=== PATIENT | female | born 1950 | race Caucasian/White ===

== ENCOUNTER 2018-07-08 17:40 | Inpatient (IN) ==
[2018-07-08 18:19] LABS: URINE SOURCE CLEAN CATCH
[2018-07-08 18:23] LABS: BILIRUBIN URINE NEGATIVE (NEGATIVE); BLOOD URINE NEGATIVE (NEGATIVE); COLOR YELLOW; GLUCOSE URINE NEGATIVE (NEGATIVE); KETONE URINE NEGATIVE (NEGATIVE); LEUKOCYTES URINE LARGE (NEGATIVE); NITRITE URINE NEGATIVE (NEGATIVE); PH URINE 5.5; PROTEIN URINE NEGATIVE (NEGATIVE); TURBIDITY URINE HAZY (CLEAR); UROBILINOGEN URINE NORMAL (NORMAL)
[2018-07-08 18:24] LABS: UR EPITHELIAL CELLS <10 /HPF (<10); URINE BACTERIA NEGATIVE /HPF; URINE RBC <10 /HPF (<10); URINE WBC TNTC /HPF (<10)
[2018-07-08] MEDS ORDERED: NS 1,000 ML IV ONE ×2 (18:25)
[2018-07-08] MEDS ORDERED: MORPHINE IV ONE (18:25)
[2018-07-08] MEDS ORDERED: ZOFRAN IM ONE (18:25)
--- NOTE | 2018-07-08 18:25 | Diag Imaging Result Doc PS360 ---
CHEST-1 VIEW - 07/08/2018 INDICATION: POSSIBLE SEPSIS COMPARISON: None FINDINGS: The lungs are normally expanded and clear. Heart size and mediastinal contours are normal. No pneumothorax or pleural effusion. IMPRESSION: Negative exam. Electronically signed by Vinny Garcia 07/08/2018 6:23 PM
[2018-07-08] MEDS ORDERED: ROCEPHIN 2 GM in NS 50 ML IV ONE (18:28)
[2018-07-08] MEDS ORDERED: ZOFRAN IV ONE (18:49)
[2018-07-08 18:56] LABS: BASO# 0.01 X1000 (0.0-0.2); BASO% 0.1 % (0.0-0.8); EOS# 0.11 X1000 (0.0-0.7); EOS% 0.6 % (0.0-10.0); HEMATOCRIT 39.1 % (37.0-47.0); HEMOGLOBIN 12.7 g/dL (12.0-16.0); IMM GRAN# 0.05 X1000 (0.0-0.04); IMM GRAN% 0.3 % (0.0-0.5); LYMPH% 3.8 % (20.5-51.1); MCH 30.4 PG (27-31); MCHC 32.5 g/dL (33-37); MCV 93.5 FL (81-99); MONO# 1.17 X1000 (0.11-0.59); MONO% 6.3 % (1.7-9.3); MPV 9.5 FL (7.4-10.4); NEUT# 16.53 X1000 (1.4-6.5); NEUT% 88.9 % (42.2-75.2); PLT 227 X1000 (130-400); RBC 4.18 XMIL (4.2-5.4); RDW 13.1 % (11.5-14.5); WBC 18.57 X1000 (4.8-10.8)
[2018-07-08 18:59] LABS: INR 0.82
[2018-07-08 19:00] LABS: PTT 26.6 Seconds (22.3-41.8)
[2018-07-08 19:12] LABS: ALB/GLOB RATIO 1.9; ALBUMIN 4.2 g/dL (3.5-5.0); CALCIUM 8.9 mg/dL (8.8-10.2); POTASSIUM 3.7 mmol/L (3.5-5.1); TOTAL BILIRUBIN 0.23 mg/dL (0.20-1.00); TOTAL PROTEIN 6.4 g/dL (6.3-8.3)
[2018-07-08] MEDS ORDERED: TYLENOL PO ONE (19:14)
--- NOTE | 2018-07-08 20:36 | Diag Imaging Result Doc PS360 ---
CT ABD/PELVIS W/IV CONT ONLY - 07/08/2018 INDICATION: MID ABDOMEN TENDERNSS PAIN + FEVER + VOMITING COMPARISON: 05/07/2016 FINDINGS: The lung bases are clear and the heart size is normal. There are cholecystectomy clips. No biliary dilation. All abdominal organs are normal. There is severe focal inflammation at the distal sigmoid colon in the region of a diverticulum. There is probably a small adjacent gas and fluid collection deep within the pelvic soft tissues. This measures about 3.5 x 3.2 cm. Urinary bladder is normal. Bones are intact. IMPRESSION: Acute sigmoid colon diverticulitis. There is a small adjacent abscess in the deep pelvic soft tissues between the urinary bladder and the rectum. This exam was performed using automated exposure control, adjustment of mA or kV according to patient size, and/or use of iterative reconstruction technique Electronically signed by Vinny Garcia 07/08/2018 8:34 PM
[2018-07-08] MEDS ORDERED: FLAGYL 500 MG/NS 500 MG/100 ML IVPB IV ONE (20:54)
--- NOTE | 2018-07-08 21:07 | PROVIDER DOCUMENTATION ---
This chart was entered by Shahana Galindo Scribe, acting as scribe for Hermes Quintana MD. HPI-Abdominal Pain/GI Problem - General Chief Complaint: Abdominal Pain Stated Complaint: ABD PAIN,FEVER,VOMITING,CHILLS Time Seen by Provider: 07/08/18 17:59 Source: patient Allergies/Adverse Reactions: Patient Allergies Allergy/AdvReac Type Severity Reaction Status Date / Time NSAIDS (Non-Steroidal Allergy Unknown Verified 07/08/18 18:18 Anti-Inflamma Sulfa (Sulfonamide Allergy Unknown Verified 07/08/18 18:18 Antibiotics) - History of Present Illness-ABD Nature of Presenting Problems: 67 yof c/o fever of 102.9, headache, lower abd pain and nausea and vomiting starting this afternoon. pt went to emergency clinic wednesday for sinus infection and finished taking azythromycin 250mg today. pt had food poisoning 4 weeks ago. pt has hx of thyroid disorder and arthritis. pt denies dysuria, retention, and urgency. Abdominal Pain Onset Location: reports: suprapubic Pain Radiation: reports: no radiation Quality of Pain: reports: sharp Severity in ED: reports: mild Onset/Duration: reports: this afternoon Timing: reports: still present Activities at Onset: reports: none Review of Systems - Adult - REVIEW OF SYSTEMS - ADULT Constitutional: reports: no symptoms reported, fever (102.9 at 1753) Eyes: reports: no symptoms reported Ears, Nose, Mouth & Throat: reports: no symptoms reported Cardiovascular: reports: no symptoms reported. denies: chest pain Respiratory: reports: no symptoms reported. denies: shortness of breath Gastrointestinal: reports: see HPI, abdominal pain (suprapubic), nausea, vo miting. denies: hematemesis, constipation, diarrhea Genitourinary: reports: no symptoms reported Musculoskeletal: reports: no symptoms reported Integumentary: reports: no symptoms reported Neurological: reports: no symptoms reported Psychiatric: reports: no symptoms reported Endocrine: reports: no symptoms reported Hematologic/Lymphatic: reports: no symptoms reported Allergic/Immunologic: reports: no symptoms reported All Other Systems: Reviewed and Negative Past History - Adult - PAST MEDICAL HISTORY-ADULT Review of Records: reports: Old Records Reviewed, Nursing Assessment Review, Medications Reviewed, Social history reviewed & non-contributory. Major Childhood Illnesses: reports: denies history Cardiovascular: reports: denies history Respiratory: reports: denies history Gastrointestinal: reports: denies history Obstetrical/Gynecological: reports: denies history Genitourinary: reports: denies history Musculoskeletal: reports: arthritis Neurological: reports: denies history Endocrine/Immune: reports: thyroid disorder Other Conditions: reports: denies history - PRIOR SURGERIES/PROCEDURES Surgical/Procedure History: reports: cholecystectomy, hysterectomy - IMMUNIZATION STATUS Childhood Immunizations: See Nurse Assessment Flu Vaccine: See Nurse Assessment - FAMILY HISTORY Family History: reviewed, not pertinent - SOCIAL HISTORY Smoking: non-smoker Substance Use: none/never Physical Exam-General - PHYSICAL EXAM-ADULT Initial Vital Signs Reviewed: Yes - CONSTITUTIONAL General Appearance: alert, mild distress. negative: slow to respond, obtunded, combative - EYES Eyes: PERRL/EOMI - HEAD, EARS, NOSE, MOUTH & THROAT HENMT: normocephalic/atraumatic, moist mucous membranes, normal ENT inspection - NECK Neck: non-tender, full range of motion, supple, normal inspection - RESPIRATORY Respiratory: chest non-tender, lungs clear, normal breath sounds - CARDIOVASCULAR Cardiovascular: normal peripheral pulses, tachycardia. negative: regular rate, rhythm, JVD, bradycardia - GASTROINTESTINAL (ABDOMEN) Abdominal Exam: normal bowel sounds, soft, tenderness (suprapubic). negative: non tender, guarding, rigid - LYMPHATIC Lymphatic: no adenopathy - MUSCULOSKELETAL Back Exam: normal inspection, no CVA tenderness, no vertebral tenderness Extremity: normal range of motion, non-tender, normal inspection, pedal edema (rt +2, lt +1). negative: no pedal edema Peripheral Pulses: radial (R): 2+, radial (L): 2+ - SKIN Integumentary: normal color, normal turgor, warm/dry - NEUROLOGIC Neurologic: director of maternity services II-XII nml as tested, grossly normal, no motor/sensory deficits - PSYCHIATRIC Psych/Mental Status: normal mood/affect, normal thought content, normal thought process, oriented x 3 Progress - PLAN OF CARE/RESULTS Progress/Plan/Lab Results: Vital Signs - 8 hr 07/08/18 17:53 Temperature 102.9 F H Pulse Rate 114 H Respiratory Rate 20 Blood Pressure 141/72 O2 Sat by Pulse Oximetry 95 Orders Category Date Time Status Cardiac Monitoring DIRECTED Care 07/08/18 17:56 Active IV Insertion ORDERED Care 07/08/18 17:56 Active Notify MD of + Sepsis Screen NOW Care 07/08/18 17:56 Active Notify Physician As Ordered Care 07/08/18 17:56 Active CHEST-1 VIEW [RAD] Stat Exams 07/08/18 17:56 Ordered BLOOD CULTURE [BLDCUL] Stat Lab 07/08/18 17:56 Uncollected CBC WITH DIFF [HEME] Stat Lab 07/08/18 17:56 Uncollected CK PROFILE [SP CHEM] Stat Lab 07/08/18 17:56 Uncollected COMPREHENSIVE METABOLIC PANEL [CHEM] Stat Lab 07/08/18 17:56 Uncollected LACTATE, PLASMA [CHEM] Q3H Lab 07/08/18 18:00 Uncollected LACTATE, PLASMA [CHEM] Q3H Lab 07/08/18 21:00 Uncollected LACTATE, PLASMA [CHEM] Q3H Lab 07/09/18 00:00 Uncollected PROTIME WITH INR [COAG] Stat Lab 07/08/18 17:56 Uncollected PTT [COAG] Stat Lab 07/08/18 17:56 Uncollected TROPONIN T Stat Lab 07/08/18 17:56 Uncollected URINALYSIS W/POSS RFLX CULT [URINALYSIS] Stat Lab 07/08/18 17:56 Uncollected Oxygen Device Stat Oth 07/08/18 17:56 Active Result Diagrams: 07/08/18 18:24 07/08/18 18:24 - REASSESSMENT Reassessment #1 Time Reassessed: 21:05 Status: other (67 YEAR OLD CAME IN WITH SEVERE SUPRAPUBIC/RECTUM AREA PAIN FOUND TO HAVE NEUTROPHILIC LEUKOCTYOSIS AND UTI WITH IMAGE REVEALING ACUTE SIGMOID C OLON DIVERTICULITIS AN SAMLL ADJACENT ABSCESS IN THE DEEP PELVIC SOFT TISSUE BETWEEN THE URINARY BLADDER AND THE RECTUM. SPOKE TO HOSPITALIST; APPRECIATE THEIR ASSISTANCE.) - EKG 1 Time of EKG reading by physician:: 18:55 EKG Read and Signed by:: Alma Morse EKG Interpretation (*Must complete 3 of following elements*): Abnormal Rate: 114 Rhythm: ST AR Interval: normal ST Wave: non-specific ST changes (nonspecific st abnormality) - XRAY 1 XRAY: Bilateral XRAY Study: Chest (CHEST-1 VIEW - 07/08/2018 INDICATION: POSSIBLE SEPSIS COMPARISON: None FINDINGS: The lungs are normally expanded and clear. Heart size and mediastinal contours are normal. No pneumothorax or pleural effusion. IMPRESSION: Negative exam. Electronically signed by Vinyn Garcia 07/08/2018 6:23 PM) Impression: Normal Comparison with other Films: no prior study - CT/MRI 1 CT Study: Abdomen (CT ABD/PELVIS W/IV CONT ONLY - 07/08/2018 INDICATION: MID ABDOMEN TENDERNSS PAIN + FEVER + VOMITING COMPARISON: 05/07/2016 FINDINGS: The lung bases are clear and the heart size is normal. There are cholecystectomy clips. No biliary dilation. All abdominal organs are normal. There is severe focal inflammation at the distal sigmoid colon in the region of a diverticulum. There is probably a small adjacent gas and fluid collection deep within the pelvic soft tissues. This measures about 3.5 x 3.2 cm. Urinary bladder is normal . Bones are intact. IMPRESSION: Acute sigmoid colon diverticulitis. There is a small adjacent abscess in the deep pelvic soft tissues between the urinary bladder and the rectum. This exam was performed using automated exposure control, adjustment of mA or kV according to patient size, and/or use of iterative reconstruction technique Electronically signed by Vinny Garcia 07/08/2018 8:34 PM), Pelvis Impression: Abnormal Comparison with other Films: changes noted Departure - Departure Date of Disposition Decision: 07/08/18 Time of Disposition Decision: 21:06 DIAGNOSIS: Diverticulitis, UTI (urinary tract infection), Neutrophilic leukocytosis, Fever, Sinus tachycardia Disposition: ADMITTED INPATIENT 09 Certified Medical Emergency: Emergent Condition: Fair Referrals and Follow-Ups: Luisa Morton MD [Primary Care Provider] - - Critical Care Note This patient required my direct & personal management of CC.: No Attestation - Physician/ PRATEEK Attestation Patient care was provided by Advanced Practice Provider:: No The physician spent face to face time with patient:: Yes Advanced Practice Provider documentation review:: Supervising physician onsite and consulted in the evaluation and care of this patient. The physician did have a face to face encounter with the patient. This chart was documented by the indicated scribe, (Shahana Galindo Scribe) and accurately reflects the services I performed and decisions made by me, Lucrecia Quintana MD, as attested by the provider's signature.
[2018-07-08] MEDS ORDERED: OXY IR PO PRN (22:09)
[2018-07-08] MEDS: MORPHINE IV PRN (23:42)
[2018-07-08] MEDS: ZOFRAN IV PRN (23:42)
[2018-07-08] MEDS: FLAGYL 500 MG/NS 500 MG/100 ML IVPB IV SCH (23:43)
[2018-07-09] MEDS: FLAGYL 500 MG/NS 500 MG/100 ML IVPB IV SCH ×5 (04:08→22:19)
[2018-07-09] MEDS: MORPHINE IV PRN ×2 (04:31→09:13)
[2018-07-09] MEDS: ZOFRAN IV PRN ×3 (04:38→15:59)
[2018-07-09 06:39] LABS: BASO# 0.01 X1000 (0.0-0.2); BASO% 0.1 % (0.0-0.8); EOS# 0.14 X1000 (0.0-0.7); EOS% 0.9 % (0.0-10.0); HEMATOCRIT 33.1 % (37.0-47.0); HEMOGLOBIN 10.6 g/dL (12.0-16.0); IMM GRAN# 0.05 X1000 (0.0-0.04); IMM GRAN% 0.3 % (0.0-0.5); LYMPH# 1.52 X1000 (1.2-3.4); LYMPH% 9.4 % (20.5-51.1); MCH 30.3 PG (27-31); MCV 94.6 FL (81-99); MONO# 1.56 X1000 (0.11-0.59); MONO% 9.7 % (1.7-9.3); MPV 9.6 FL (7.4-10.4); NEUT# 12.82 X1000 (1.4-6.5); NEUT% 79.6 % (42.2-75.2); PLT 193 X1000 (130-400); RDW 13.4 % (11.5-14.5)
[2018-07-09 06:49] LABS: AGAP 9; BUN 9 mg/dL (8-22); CALCIUM 7.7 mg/dL (8.8-10.2); CHLORIDE 107 mmol/L (98-107); COSMO 276; CREATININE 0.8 mg/dL (0.5-0.9); ESTIMATED GFR > 60; GLUCOSE 97 mg/dL (70-104); POTASSIUM 3.5 mmol/L (3.5-5.1); SODIUM 139 mmol/L (136-145); TCO2 23 mmol/L (25-35)
--- NOTE | 2018-07-09 08:13 | HISTORY AND PHYSICAL ---
PRIMARY CARE PHYSICIAN: Dr. Luisa Morton. REASON FOR ADMISSION: One day of sudden acute on chronic abdominal pain. HISTORY OF PRESENT ILLNESS: Ms. Darlin Pelayo is a 67-year-old woman with no significant past medical history who reports that 4 weeks ago she had what she describes as some gastroenteritis, presumably food poisoning, and states that she has not gotten over this. She says that she has been having intermittent lower abdominal pain with no specific aggravating or relieving factors. She says that she has not had any additional symptoms other than the aforementioned transient lower abdominal pain. She states that at about 3:00 p.m. earlier today she developed sudden intense suprapubic pain which was sharp in nature, not radiating, to the point that it is has pretty much crippled her and made her cry. She states that she an hour later developed fever and chills and has vomited twice since the onset of this pain. It has been constant with no relief. It is worse when she tries to move and it eases when she keeps still. She admits to having some mild dysuria today but no frequency or urgency and no hematuria or bleeding from any orifice. She denies any cardiorespiratory symptoms. No arthralgia or rash. Denies any polyuria or polydipsia. No focal neurological complaints. REVIEW OF SYSTEMS: No contact with anybody with GI symptoms. Otherwise, a 12- system review was done with positive findings in HPI. The patient complains of increasing thirst. ALLERGIES: NSAIDs, sulfa, and penicillin. She has taken Keflex without any problems in the past. SURGICAL HISTORY: She has had a cholecystomy, hysterectomy, rotator cuff surgery, bilateral carpal tunnel surgery, right knee surgery, right elbow surgery, and ACDF. SOCIAL HISTORY: She does not smoke, drink, or use illicit drugs. She lives with her and is the primary caregiver for him since he has progressive dementia. FAMILY HISTORY: Significant for heart disease, stroke, and breast cancer. No type 2 diabetes in first degree relatives. LAB WORK: White count is 18,000, hemoglobin and hematocrit 12 and 39, platelets 227, and 89% neutrophils. BUN is 14 and creatinine 1. Troponin is negative. Lactate is normal. PT is normal. Urinalysis: Large leukocytes with lots of WBCs, no bacteria. Blood culture is pending. Chest film is normal. CT abdomen and pelvis shows sigmoidal diverticulitis with small adjacent abscess in the deep pelvic soft tissue between the urinary bladder and rectum measuring about 3 x 3 cm. PHYSICAL EXAMINATION: VITAL SIGNS: Blood pressure is 139/89, heart rate 119, respirations 19, temperature 103, and oxygen saturation 97% on room air. GENERAL: Middle-aged patient who is not acutely toxic. She is alert and oriented to person, place, and time. Normal mood and affect. HEAD: Normocephalic, atraumatic. EYES: PERRLA. EOMI. Anicteric. Not pale. ENT: Grossly normal. NECK: Supple. No JVD, carotid bruit, or thyromegaly. CHEST: Clear when auscultated. Good air entry in both lung harvey. CARDIOVASCULAR: First and second heart sounds heard. No gallops. She has a 3/6 pansystolic murmur radiating into the neck. Rhythm is regular. ABDOMEN: Full and soft with tenderness confined to the suprapubic area with no rebound or guarding. Bowel sounds are slightly hyperactive. RECTAL: Exam deferred at this time. EXTREMITIES: The patient has good distal pulses and pulse volumes in all extremities. Rhythm is regular and symmetrical. NEUROLOGICAL: No tremors. No focal deficits. SKIN: Intact with no breakdown, lesions, or erythema. There is mildly decreased skin turgor. MUSCULOSKELETAL: Grossly normal. ASSESSMENT AT THIS TIME: 1. Acute sigmoidal diverticulitis. 2. Pelvic abscess secondary to #1. 3. Pyuria. 4. Dehydration. PLAN: The patient will be started on broad-spectrum antibiotics with particular coverage for gram- negative rods and anaerobes. The patient's abscess formation is about 3 cm in diameter. We will defer to the radiologist to see if a percutaneous drain can be placed or if the patient will initially be treated [address] a repeat [address] scan done to make a final decision about drain placement. We will consult General Surgery as backup in case surgical intervention is needed although this is unlikely in this patient. Treat the patient symptomatically for vomiting, pain, and dehydration. Follow daily labs and modify treatment accordingly. Independent exam done by me and it showed + rebound tenderness without any guarding in the LLQ and suprapubic areas. Pyuria was likely as a result of nearby reaction to pelvic abscess. Answered all family and patient's questions regarding plan. The above plan was also relayed to FURNITURE [employer]DER. cc: MD Luisa Amaya MD MTDD
--- NOTE | 2018-07-09 10:26 | CONSULTATION ---
DATE OF CONSULTATION: 07/09/2018 REASON FOR CONSULTATION: Diverticular abscess. HISTORY OF PRESENT ILLNESS: This is a 67-year-old female who reports lower abdominal pain with nausea and intermittent vomiting over the last several weeks that she has attributed to food poisoning or gastroenteritis. However, yesterday she had acute worsening in the suprapubic area that was very sharp with associated fever over 101 degrees and chills, and she had 2 more episodes of vomiting in the last 24 hours. It hurts worse to move. It is lessened with lying still and drawing her knees and legs upwards. PAST MEDICAL HISTORY: Unremarkable. PAST SURGICAL HISTORY: Laparoscopic cholecystectomy, hysterectomy. HOME MEDICATIONS: None. SOCIAL HISTORY: Negative for tobacco, alcohol or illicit drug use. FAMILY HISTORY: Reviewed and noncontributory. REVIEW OF SYSTEMS: Ten systems reviewed and negative except as noted above. Last colonoscopy was 4 to 5 years ago and showed some small polyps. ALLERGIES: NSAIDs and sulfa. PHYSICAL EXAMINATION: Vital Signs: Temperature 98.9 degrees, pulse 79, respirations 18, blood pressure 114/57, O2 saturation 97%. General: She is awake, alert, oriented x4. No acute distress. HEENT: Normocephalic, atraumatic. Extraocular muscles intact. Pupils equal, round, reactive to light. Sclerae anicteric. Moist mucous membranes. Neck: Supple. No thyromegaly. Cardiovascular: Regular rate and rhythm. Respiratory: Bilateral equal breath sounds. No work of breathing. Gastrointestinal: Soft, nondistended. Hypoactive bowel sounds. She is quite tender in the suprapubic area and lower quadrants. Her upper abdomen is relatively nontender. No rebound or guarding. Extremities: No clubbing, cyanosis, or edema. Skin: Warm and dry. No rash. Musculoskeletal: Moves all extremities equally and well. LABORATORY DATA: White blood cell count 16,000, hemoglobin 10.6, hematocrit 33.1, platelet count 193,000. Electrolytes reviewed and unremarkable. IMAGING: Abdominal and pelvis CT scan was reviewed by me as well as official report, and does show an inflamed distal sigmoid colon with a pericolonic abscess that is small, less than 5 cm. ASSESSMENT AND PLAN: A 67-year-old female with complicated diverticulitis with abscess. She does not require an operation at this time or drainage. This will likely resolve with antibiotics alone. I would keep her on ice chips and sips of clear liquids for now and maintain her on broad- spectrum antibiotics as you are doing with Rocephin and Flagyl. We will continue to monitor her progress over the next few days. cc: Nahun Nunez MD
[2018-07-09] MEDS: TYLENOL LIQUID PO SCH ×4 (15:00→22:19)
[2018-07-09] MEDS: PERICOLACE PO SCH ×2 (15:01→20:53)
[2018-07-09] MEDS: CULTURELLE PO SCH ×2 (15:01→20:53)
[2018-07-09] MEDS: NS 1,000 ML IV SCH ×3 (15:01→20:54)
[2018-07-09] MEDS: CIPRO 400 MG/D5W 400 MG/200 ML IVPB IV SCH (15:59)
--- NOTE | 2018-07-09 17:53 | PROGRESS NOTE ---
DATE: 07/08/2018 SUBJECTIVE: The patient is still in a lot of pain. She is having emesis even with sips of clears. OBJECTIVE: Vital Signs: Blood pressure is 132/63, heart rate 66, respiratory rate 18, temperature 98.7, 96% on room air. Cardiovascular: Regular rate and rhythm. Pulmonary: Bilateral breath sounds. Clear to auscultation. GI: Soft. Pain diffusely with guarding in her lower quadrants. LABORATORY DATA: White count is 16, down from 18, hemoglobin and hematocrit 10 and 33, platelets 193. Basic was normal. PROBLEM LIST: Diverticulitis with abscess. We will continue antibiotics. I have switched her to Cipro and Flagyl. She had been on Rocephin and Flagyl, I guess out of preference. Rocephin is probably just as effective. I standardly use fluoroquinolones, and we may even need to consider carbapenem in this setting, but we will continue antibiotics and follow. Her pain is not completely under control. None of her medications have been updated. She wanted her medications restarted, but they have not been updated. We will work on that. She is requesting something for sleep, so we will put in for some Ativan. Surgery has been consulted, so at this point, we are just doing conservative measures, and we will follow. cc: Ashish Asher MD
[2018-07-09] MEDS ORDERED: ROCEPHIN 2 GM in NS 50 ML IV SCH (19:00)
[2018-07-09] MEDS: ATIVAN IV SCH (20:54)
[2018-07-10] MEDS: CIPRO 400 MG/D5W 400 MG/200 ML IVPB IV SCH ×2 (01:00→13:28)
[2018-07-10] MEDS: FLAGYL 500 MG/NS 500 MG/100 ML IVPB IV SCH ×4 (04:11→23:34)
[2018-07-10 06:52] LABS: EOS# 0.11 X1000 (0.0-0.7); EOS% 1.4 % (0.0-10.0); HEMATOCRIT 33.2 % (37.0-47.0); HEMOGLOBIN 10.4 g/dL (12.0-16.0); IMM GRAN# 0.02 X1000 (0.0-0.04); IMM GRAN% 0.3 % (0.0-0.5); LYMPH# 0.99 X1000 (1.2-3.4); LYMPH% 12.7 % (20.5-51.1); MCH 29.8 PG (27-31); MCHC 31.3 g/dL (33-37); MCV 95.1 FL (81-99); MONO# 0.72 X1000 (0.11-0.59); MONO% 9.2 % (1.7-9.3); MPV 9.8 FL (7.4-10.4); NEUT# 5.96 X1000 (1.4-6.5); NEUT% 76.4 % (42.2-75.2); PLT 189 X1000 (130-400); RBC 3.49 XMIL (4.2-5.4); RDW 13.1 % (11.5-14.5)
[2018-07-10 07:13] LABS: AGAP 10; BUN 7 mg/dL (8-22); CALCIUM 8.2 mg/dL (8.8-10.2); CHLORIDE 110 mmol/L (98-107); COSMO 280; CREATININE 0.7 mg/dL (0.5-0.9); ESTIMATED GFR > 60; GLUCOSE 77 mg/dL (70-104); POTASSIUM 3.5 mmol/L (3.5-5.1); SODIUM 142 mmol/L (136-145); TCO2 22 mmol/L (25-35)
[2018-07-10] MEDS: TYLENOL LIQUID PO SCH ×3 (10:10→16:57)
[2018-07-10] MEDS: PERICOLACE PO SCH ×2 (10:11→21:29)
[2018-07-10] MEDS: CULTURELLE PO SCH ×2 (10:12→21:29)
[2018-07-10] MEDS: ZOFRAN IV PRN (14:30)
[2018-07-10] MEDS: D5 1/2 NS + KCL 20 MEQ 1,000 ML IV SCH (14:39)
[2018-07-10] MEDS ORDERED: PHENERGAN IV PRN (17:57)
[2018-07-10] MEDS ORDERED: SODIUM CHLORIDE 0.9% INJ PRN (17:57)
[2018-07-10] MEDS ORDERED: OFIRMEV 1000 MG/ISOTONIC SOLN 1,000 MG/100 ML BOTTLE IV PRN (18:56)
--- NOTE | 2018-07-10 19:19 | PROGRESS NOTE ---
DATE: 07/10/2018 SUBJECTIVE: She is still in a lot of pain. She has several episodes of throwing up because of she just cannot tolerate very much p.o. OBJECTIVE: Blood pressure is 127/58.Heart: Rate of regular rate and rhythm. Pulmonary: Bilateral breath sounds. GI: Soft, tender in her lower quadrants. LABORATORY DATA: White count is down to 7, hemoglobin and hematocrit 10 and 33, platelets 189,000. Basic was normal. PROBLEMS: Acute sigmoid diverticulitis with a 3 cm abscess. She is on Cipro and Flagyl and seems to be doing okay. We will continue IV fluids. She is still having some nausea. We have added Phenergan to her regimen, she is just very intolerant of medications. DISPOSITION: Anticipate will probably have to repeat her CT scan at the discretion of surgery in the next day or 2 just to make sure that things are improved. Her diet has been advanced. We will continue to monitor her electrolytes and she is not eating as well and I believe overall she is improved. Now urine culture shows strep agalactiae which is sensitive to Levaquin and she is on Cipro so we will continue to follow. At this point I am not clear this is bacteriuria but she is being covered with current antibiotics. cc: Ashish Asher MD
[2018-07-10] MEDS: ATIVAN IV SCH (21:30)
[2018-07-11] MEDS: CIPRO 400 MG/D5W 400 MG/200 ML IVPB IV SCH ×2 (01:01→14:06)
[2018-07-11] MEDS: SYNTHROID PO SCH (05:59)
[2018-07-11] MEDS: FLAGYL 500 MG/NS 500 MG/100 ML IVPB IV SCH ×4 (05:59→21:52)
[2018-07-11] MEDS: D5 1/2 NS + KCL 20 MEQ 1,000 ML IV SCH (05:59)
[2018-07-11 06:36] LABS: BASO# 0.01 X1000 (0.0-0.2); BASO% 0.2 % (0.0-0.8); EOS% 3.6 % (0.0-10.0); HEMATOCRIT 33.4 % (37.0-47.0); HEMOGLOBIN 10.6 g/dL (12.0-16.0); LYMPH# 1.09 X1000 (1.2-3.4); LYMPH% 19.6 % (20.5-51.1); MCH 29.8 PG (27-31); MCHC 31.7 g/dL (33-37); MCV 93.8 FL (81-99); MONO# 0.56 X1000 (0.11-0.59); MONO% 10.1 % (1.7-9.3); MPV 9.6 FL (7.4-10.4); NEUT# 3.69 X1000 (1.4-6.5); NEUT% 66.5 % (42.2-75.2); PLT 200 X1000 (130-400); RBC 3.56 XMIL (4.2-5.4); RDW 12.9 % (11.5-14.5); WBC 5.55 X1000 (4.8-10.8)
[2018-07-11 07:02] LABS: AGAP 10; BUN 4 mg/dL (8-22); CALCIUM 8.6 mg/dL (8.8-10.2); CHLORIDE 112 mmol/L (98-107); COSMO 291; CREATININE 0.8 mg/dL (0.5-0.9); ESTIMATED GFR > 60; GLUCOSE 94 mg/dL (70-104); POTASSIUM 3.3 mmol/L (3.5-5.1); SODIUM 148 mmol/L (136-145); TCO2 26 mmol/L (25-35)
--- NOTE | 2018-07-11 08:12 | EKG Report ---
Test Performed on : 07/08/2018 6:55:31 PM Test Reason : TACHYCARDIA Blood Pressure : / mmHG Vent. Rate : 114 BPM Atrial Rate : 114 BPM P-R Int : 168 ms QRS Dur : 084 ms QT Int : 316 ms P-R-T Axes : 027 019 010 degrees QTc Int : 435 ms Sinus tachycardia. Nonspecific ST abnormality Abnormal ECG No previous ECGs available Unconfirmed Result
[2018-07-11] MEDS: NEURONTIN PO SCH ×2 (08:13→14:05)
[2018-07-11] MEDS: CULTURELLE PO SCH ×2 (08:13→21:52)
[2018-07-11] MEDS: PERICOLACE PO SCH ×2 (08:14→21:53)
--- NOTE | 2018-07-11 13:37 | PROGRESS NOTE ---
DATE: 07/11/2018 SUBJECTIVE: The patient still having abdominal pain. She is having episodes of vomiting although around these episodes she is tolerating clear liquids in small amounts. OBJECTIVE: Vital signs: Blood pressure is 128/65 with a heart rate of 77, respirations 20, temperature is 98.5 degrees oral with room air saturations 99-100% . Cardiovascular: Regular rate and rhythm. S1 and S2 appreciated. Pulmonary: Breath sounds are clear with no increased work of breathing noted. Chest rise and fall symmetric respiration. Chest wall is nontender to palpation. Gastrointestinal: Abdomen soft. She does have some bilateral lower quadrant tenderness is nondistended with bowel sounds in all 4 quadrants. Skin: Is warm and dry. Neurologic: She is alert, oriented x3. LABS: WBC is 5.5 with hemoglobin 10.6, hematocrit 33.4, platelets of 200,000, sodium 148, potassium 3.3, BUN 4 with a creatinine 0.8. ASSESSMENT AND PLAN: 1. Complicated diverticulitis with abscess. She is being followed by surgery. continue IV antibiotics 2. UTI, group B strep c continue antibiotics 3. Nausea,vomiting - improving, continue antiemetics 4. Abdominal pain - Continue medications CBC, BMP in am Dictated by SHEA Barahona for Clay Alba MD This chart was documented by, SHEA Barahona and accurately reflects the services performed, treatment plan and medical decisions as attested by the providers signature Clay Alba MD. cc: SHEA Barahona MD [facility]
[2018-07-11] MEDS ORDERED: KLOR-CON PO ONE (16:09)
[2018-07-11] MEDS ORDERED: D5W 1,000 ML IV SCH (16:15)
--- NOTE | 2018-07-11 18:46 | GENERAL SURGERY PROGRESS NOTE ---
DATE: 07/11/2018 SUBJECTIVE: The patient is doing well. She still has some lower abdominal pain, but it is starting to improve. OBJECTIVE: Vital Signs: She is afebrile. Vital signs are stable. General: She is awake, alert, oriented x 3. No acute distress. Gastrointestinal: GI soft. She is still moderately tender across her lower abdomen. LABORATORY: Reviewed and unremarkable. ASSESSMENT AND PLAN: A 67-year-old female with complicated diverticulitis. She is improving on IV antibiotics. I would continue this care for now. I will advance her to a soft diet and we will re-evaluate over the next 24 to 48 hours whether she is ready to go home. cc: Nahun Nunez MD
[2018-07-11] MEDS: ATIVAN IV SCH (21:52)
[2018-07-12] MEDS: CIPRO 400 MG/D5W 400 MG/200 ML IVPB IV SCH ×2 (02:22→13:56)
[2018-07-12] MEDS: FLAGYL 500 MG/NS 500 MG/100 ML IVPB IV SCH ×2 (04:14→11:30)
[2018-07-12] MEDS: SYNTHROID PO SCH (06:04)
[2018-07-12 06:59] LABS: AGAP 10; ALB/GLOB RATIO 1.3; ALBUMIN 3.4 g/dL (3.5-5.0); ALKALINE PHOSPHATASE 64 U/L (32-104); BUN 4 mg/dL (8-22); CALCIUM 8.7 mg/dL (8.8-10.2); CHLORIDE 110 mmol/L (98-107); COSMO 289; CREATININE 0.7 mg/dL (0.5-0.9); ESTIMATED GFR > 60; GLUCOSE 85 mg/dL (70-104); GOT 12 U/L (10-30); GPT 12 U/L (10-36); POTASSIUM 3.6 mmol/L (3.5-5.1); SODIUM 147 mmol/L (136-145); TCO2 27 mmol/L (25-35); TOTAL BILIRUBIN 0.22 mg/dL (0.20-1.00)
[2018-07-12] MEDS: NEURONTIN PO SCH ×2 (10:05→13:56)
[2018-07-12] MEDS: CULTURELLE PO SCH ×2 (10:05→21:47)
[2018-07-12] MEDS: PERICOLACE PO SCH ×2 (10:05→21:47)
[2018-07-12] MEDS ORDERED: D5W 1,000 ML IV SCH (14:30)
--- NOTE | 2018-07-12 15:41 | PROGRESS NOTE ---
DATE: 07/12/2018 SUBJECTIVE: This patient is still complaining of some abdominal discomfort, lower abdominal pain mostly upon palpation, she is not having vomiting but she started having some diarrhea in the morning but not in the afternoon. As per the patient since 6 a.m. to 11 a.m. she had around 6 bowel movements liquids but not any more, we will monitor for now. OBJECTIVE: Vital Signs: Temperature 98.4 degrees, pulse 86, respiratory rate 18, blood pressure 128/67, oxygen saturation 100% on room air. HEENT: Head normocephalic, no trauma. PERRLA. Neck: Supple. No JVD. No masses. Central trachea. Chest: Clear to auscultation. No wheezing, no rales. Abdomen: Soft, mild tenderness to palpation at the level of the lower abdomen. Positive bowel sounds. No signs of peritoneal irritation. Extremities: No edema, no clubbing, no cyanosis. Neurologic: Patient is alert and oriented x3. No focal deficits. LABORATORY: Sodium 147, potassium 3.6, chloride 110, bicarbonate 27, BUN 4, creatinine 0.7, glucose 85, calcium 8.7, AST 12, ALT 12, alkaline phosphatase 64, albumin 3.4. ASSESSMENT AND PLAN: 1. Complicated diverticulitis with abscess, continue with IV antibiotics. I think this is getting much better. The WBC is normal. No fever, no chills and abdominal pain is better as well, surgery following this patient. 2. Urinary tract infection due to strep agalactiae, continue with quinolones. 3. Nausea, vomiting, improving. Continue with nausea medication. 4. Abdominal pain. This seems to be more stable. Now she is having some diarrhea. We will monitor for now. 5. Diarrhea as above. cc: Clay Alba MD
--- NOTE | 2018-07-12 18:19 | GENERAL SURGERY PROGRESS NOTE ---
DATE: 07/12/2018 SUBJECTIVE: The patient is doing better today. Less pain. No nausea or vomiting. She is tolerating a liquid diet. OBJECTIVE: Vital Signs: She is afebrile. Vital signs are stable. General: She is awake, alert, and oriented x3, in no acute distress. Gastrointestinal: Soft, nondistended, less tender, but still focal tenderness remains in the suprapubic area. No rebound or guarding. LABORATORY: No white blood cell count today; it was normal yesterday. Electrolytes reviewed and unremarkable. ASSESSMENT AND PLAN: A 67-year-old female with complicated diverticulitis. She is improving. I will change her to oral antibiotics. If she does well overnight, then I plan to discharge her home tomorrow with outpatient followup in my office next week. cc: Nahun Nunez MD
[2018-07-12] MEDS: FLAGYL PO SCH (21:47)
[2018-07-12] MEDS: ATIVAN IV SCH (21:47)
[2018-07-12] MEDS: CIPRO PO SCH (21:54)
[2018-07-13] MEDS: FLAGYL PO SCH ×2 (05:45→12:46)
[2018-07-13] MEDS: SYNTHROID PO SCH (05:46)
[2018-07-13 06:41] LABS: BASO# 0.01 X1000 (0.0-0.2); BASO% 0.2 % (0.0-0.8); EOS# 0.26 X1000 (0.0-0.7); HEMATOCRIT 36.4 % (37.0-47.0); HEMOGLOBIN 11.7 g/dL (12.0-16.0); IMM GRAN# 0.02 X1000 (0.0-0.04); IMM GRAN% 0.4 % (0.0-0.5); LYMPH# 1.13 X1000 (1.2-3.4); LYMPH% 21.6 % (20.5-51.1); MCH 29.3 PG (27-31); MCHC 32.1 g/dL (33-37); MONO# 0.67 X1000 (0.11-0.59); MONO% 12.8 % (1.7-9.3); MPV 9.4 FL (7.4-10.4); NEUT# 3.15 X1000 (1.4-6.5); PLT 236 X1000 (130-400); RDW 13.1 % (11.5-14.5); WBC 5.24 X1000 (4.8-10.8)
[2018-07-13 07:07] LABS: AGAP 10; BUN 8 mg/dL (8-22); CALCIUM 8.9 mg/dL (8.8-10.2); CHLORIDE 106 mmol/L (98-107); COSMO 281; CREATININE 0.8 mg/dL (0.5-0.9); ESTIMATED GFR > 60; GLUCOSE 97 mg/dL (70-104); POTASSIUM 3.8 mmol/L (3.5-5.1); SODIUM 142 mmol/L (136-145); TCO2 26 mmol/L (25-35)
[2018-07-13 08:08] VITALS: BP 134/73
[2018-07-13] MEDS: NEURONTIN PO SCH ×2 (09:27→12:46)
[2018-07-13] MEDS: CIPRO PO SCH (09:27)
[2018-07-13] MEDS: CULTURELLE PO SCH (09:31)
[2018-07-13] MEDS: PERICOLACE PO SCH (09:32)
--- NOTE | 2018-07-13 14:29 | GENERAL SURGERY PROGRESS NOTE ---
DATE: 07/13/2018 SUBJECTIVE: The patient feels better, less pain. No nausea or vomiting. Tolerating a diet and having bowel movements. OBJECTIVE: She is afebrile. Vital signs are stable. General: She is awake, alert, and oriented x3. No acute distress. GI: Soft, nondistended. Minimal tenderness. No rebound. ASSESSMENT/PLAN: A 67-year-old female with complicated diverticulitis. She is much improved. She will be discharged home on Cipro and Flagyl, and follow up with me next week. cc: Nahun Nunez MD
--- NOTE | 2018-07-14 04:14 | DISCHARGE SUMMARY ---
ADMISSION DATE: 07/08/2018 DISCHARGE DATE: 07/13/2018 This is SHEA Hartley dictating for Clay Alba MD. PRIMARY CARE PHYSICIAN: Luisa Morton MD. CONSULTATIONS: Dr. Nunez with General surgery. PROCEDURES AND FINDINGS: 1. Chest x-ray revealed negative examination. 2. Abdominal pelvis CT reveals acute sigmoid colon diverticulitis, a small adjacent abscess in the deep pelvic soft tissues between the urinary bladder and the rectum. 3. EKG reveals sinus tachycardia with nonspecific ST abnormality. DISCHARGE DIAGNOSES: 1. Complicated diverticulitis with abscess. She has received intravenous antibiotics including Rocephin and Flagyl. She has clinically improved. Her white blood cell count is back to normal. She is now without fever, chills, and abdominal pain has improved. Surgery has been consulted and they evaluated this patient. Surgery was not recommended. She will continue a course of home per oral antibiotics. 2. Urinary tract infection. She will continue with home antibiotics. 3. Nausea and vomiting has improved. She will continue with medications at home as needed. 4. Abdominal pain. This is improved as well. She will continue with home medications as needed. HOSPITAL COURSE: Ms. Pelayo is a 67-year-old female with no significant past medical history who reported that about 4 weeks ago she had symptoms similar to gastroenteritis, and she was having intermittent lower abdominal pain. She had no additional symptoms other than the transient lower abdominal pain and then about 3 p.m. on her date of admission she developed sudden intense suprapubic pain, sharp in nature, not radiating. She also developed a fever, chills and vomiting. She then came into the emergency room and a CT scan revealed the sigmoid colon diverticulitis and a small abscess in the deep pelvic soft tissues. She was started on IV Rocephin and Flagyl. Dr. Nunez with General Surgery was consulted in case surgical intervention was required. Her antibiotics were switched to Cipro and Flagyl, and her diet was slowly advanced. Her urine culture was positive for Streptococcus agalactiae, blood cultures were negative. She has clinically improved with IV antibiotics, and she has been cleared by Surgery as this does not require surgical intervention. She is stable for discharge to home and she will follow up with Dr. Nunez next week. DISCHARGE VITAL SIGNS: Her last vital signs were temperature 98.8 degrees, heart rate 78, respiratory rate 20, blood pressure 134/73, O2 saturation 99% on room air. DISCHARGE LABORATORY DATA: His last laboratories show a WBC of 5.2, hemoglobin 11.7, hematocrit 36.4, platelets 236,000. Sodium 142, potassium 3.8, BUN 8, creatinine 0.8, glucose 97. DISCHARGE PLAN: She will be discharged to home and will follow up with Dr. Nunez on 07/20/2018 at 1:30 p.m. She should also follow up with her PCP Dr. Morton within 2 weeks. DISCHARGE MEDICATIONS: Per Dr. Dixon: 1. Cipro 500 mg p.o. b.i.d. 2. Gabapentin 300 mg p.o. b.i.d. 3. Culturelle 1 each p.o. b.i.d. 4. Synthroid 125 mcg p.o. daily. 5. Flagyl 500 mg p.o. q.8 hours. 6. Megan-Colace 1 each p.o. b.i.d. 7. Tramadol 50 mg p.o. t.i.d. 8. Ambien 10 mg p.o. at bedtime p.r.n. insomnia. DISCHARGE INSTRUCTIONS: Please return to the emergency room for any chest pain, shortness of breath or worsening of symptoms. Discharged time : 30 + minutes Dictated by SHEA Hartley for Clay Alba MD cc: MD Nahun Lawton MD Emily M. McClure, MD [facility]
== END 2018-07-13 13:01 | disposition home or self-care (01) | DRG 872 ==
LOC: ED 17:40 → 4N 22:10 → SUATTDRO 22:10 → 4N 07-10 13:24
PROVIDERS: ATTEND Internal Medicine
CPT/HCPCS: 71010; 71045; 74177; 80048; 80053; 81001; 82306; 82550; 83605; 83735; 84484; 85025; 85610; 85730; 87040; 87077; 87088; 87186; 93005; 96361; 96365; 96367; 96375; 99285; A9270; J0696; J0744; J2060; J2270; J2405; J2550; J3480; J7030; Q9967; S0030